=== PATIENT | female | born 1975 | race Caucasian/White ===

== ENCOUNTER → 2016-12-09 | Day surgery (SDC) | payer OTHER ==
[~2016-12-09] MED LIST: CIPRO PO; DIAZEPAM PO; DICLOFENAC PO; FLOMAX0.4 M1 PO; IBUPROFEN800 MG PO; MELOXICAM15 MG; NO MEDICATIONS; NORVASC PO; PERCOCET PO; PREDNISONE PO; PREMARIN0.3 MG PO; TOPROL XL PO; TUSSIN MAX15 MG/5 M1 PO; TYLENOL #3 PO; VISTARIL PO; WELLBUTRIN PO; ZITHROMAX PO; ZOFRAN PO
--- NOTE | ~2016-12-09 | OR ---
Unit #: [id number] #: [id number] Patient: JACK ACEVEDO [id number] [address] [place], [place] [address] [id number] O MR#: [id number] NAME: JACK ACEVEDO ROOM: Date of Procedure: 12/09/2016 Admission Date: 12/09/2016 Surgeon: Esteban Allen M.D. : 1975 Attending Physician: Esteban Allen M.D. Primary Care Physician: Sundeep Blari M.D. OPERATIVE REPORT PREOPERATIVE DIAGNOSES Back pain, radiculopathy, spinal stenosis, degenerative facet disease, degenerative disk disease. POSTOPERATIVE DIAGNOSES Back pain, radiculopathy, spinal stenosis, degenerative facet disease, degenerative disk disease. PROCEDURE PERFORMED Lumbar epidural steroid injection with intravenous sedation and fluoroscopic guidance for needle localization. INDICATIONS FOR PROCEDURE The patient is a 41-year-old female with about a year history of back, buttock and hip pain with some tingling and numbing pain radiating down below her knees. Workup demonstrated facet disease most significant at L4-5 than at L3-4. 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 The feeling is based on symptoms, but the stenosis is more consistent with her pathology. Plan is for a trial of epidural steroids if she has failed to settle with conservative measures. DESCRIPTION OF PROCEDURE The patient was placed in a seated position. Standard monitors were applied. 2 mg of Versed were given for sedation and anxiolysis, which were adequate. Vital signs remained stable. Sterile prep and drape then of the lumbar area was performed. The skin then at the L4-5 level was localized with 1% lidocaine. An 18-gauge Hustead needle was then advanced via loss of resistance technique and fluoroscopic guidance in toward the epidural space. The patient tolerated the procedure otherwise well and was discharged to the recovery room in stable condition. Dictated by... Pamela Mckeon/nneka TD: 12/09/2016 08:53 JOB #: [id number] CC: Kt Mcdaniels M.D. Unit #: [id number] #: [id number] Patient: JACK ACEVEDO OPERATIVE REPORT Page 1 of 1 X Esteban Allen MD X PROCEDURE OPERATIVE NOTE
== END | disposition home or self-care (01) ==
LOC: CCSC 07:31
DX: M47.26 Other spondylosis with radiculopathy, lumbar region (principal); M51.16 Intervertebral disc disorders with radiculopathy, lumbar region; M48.06 Spinal stenosis, lumbar region
CPT/HCPCS: J1040; J2250

== ENCOUNTER → 2017-01-13 | Day surgery (SDC) | payer OTHER ==
--- NOTE | ~2017-01-13 | OR ---
Unit #: [id number] #: [id number] Patient: JACK ACEVEDO [id number] [address] [place], [place] [address] [id number] O MR#: [id number] NAME: JACK ACEVEDO ROOM: Date of Procedure: 01/13/2017 Admission Date: 01/13/2017 Surgeon: Esteban Allen M.D. : 1975 Attending Physician: Esteban Allen M.D. Primary Care Physician: Sundeep Blair M.D. PROCEDURE OPERATIVE NOTE PREOPERATIVE DIAGNOSIS Back pain, lumbar spinal stenosis, degenerative disc disease, degenerative facet disease. POSTOPERATIVE DIAGNOSIS Back pain, lumbar spinal stenosis, degenerative disc disease, degenerative facet disease. PROCEDURE PERFORMED Lumbar epidural steroid injection with intravenous sedation under fluoroscopic guidance for needle localization. HISTORY This is a 41-year-old female whose primary issue is back pain and bilateral lower extremity numbness which improved with the first injection. Back pain did well for a week to two and then it has gradually returned. (1) based bulging and moderate stenosis at the L3-4 level. Broad based bulging advanced (2) severe stenosis at L4-5. Thus will repeat a second epidural steroid injection based on her reasonable partial response. PROCEDURE The patient was placed in a seated position. Standard monitors were applied. 2 mg of versed were given for sedation and anxiolysis which were adequate. Vital signs remained stable. Sterile prep and drape then of the lumbar area was performed. The skin at the L4 level was localized with 1% lidocaine. An 18-gauge MacroSolvetead needle was then advanced via loss of resistance technique and fluoroscopic guidance in toward the epidural space. After confirming proper positioning with fluoroscopy and radiographic contrast, 80 mg of Depo-Medrol and 4 ml of 0.125% bupivacaine were deposited. The patient tolerated the procedure otherwise well and was discharged to the recovery room in stable condition. Dictated by... Pamela Mckeon/severo Unit #: [id number] #: [id number] Patient: JACK ACEVEDO TD: 01/13/2017 09:25 JOB #: [id number] PROCEDURE OPERATIVE NOTE Page 1 of 1 X Esteban Allen MD X PROCEDURE OPERATIVE NOTE
== END | disposition home or self-care (01) ==
LOC: CCSC 07:16
DX: M51.16 Intervertebral disc disorders with radiculopathy, lumbar region (principal); M48.06 Spinal stenosis, lumbar region; M53.86 Other specified dorsopathies, lumbar region; Z88.2 Allergy status to sulfonamides; Z79.1 Long term (current) use of non-steroidal anti-inflammatories (NSAID); Z79.899 Other long term (current) drug therapy
CPT/HCPCS: J1040; J2250

== ENCOUNTER → 2017-04-03 | Outpatient (CLI) | payer OTHER ==
--- NOTE | ~2017-04-03 | MR32 ---
[facility] A Service of [facility] RADIOLOGY TEXT RESULTS PATIENT: JACK ACEVEDO LOCATION: [facility] : [birth year] UNIT #: [id number] AGE: [address]: Sundeep Blair MD SEX: F ORDER DR: [id number] [address] [address] [id number] O MR#: [id number] Acc #: [id number] NAME: JACK ACEVEDO : 1975 SEX: F STUDY DATE/TIME: 04/03/2017 13:10 UNIT: [facility] ROOM: STUDY DESCRIPTION: MR Cervical Wo Contrast Attending Physician: Sundeep Blair M.D. Referring Physician: Sundeep Blair M.D. Ordering Physician: Sundeep Blair M.D. Primary Care Physician: Sundeep Blair M.D. MRI CENTER REPORT This report is preliminary unless electronic signature is present. EXAM MRI of the cervical spine without contrast, dated 04/03/2017. COMPARISON None. HISTORY Increasing neck pain with arm and shoulder pain bilaterally. Bilateral hand numbness also for the last 4-5 months. FINDINGS Multisequence, multiplanar imaging of the cervical spine was obtained without contrast. Disc osteophyte complex are at multiple levels. Edematous endplate changes are at C5-6, associated 3 mm anterolisthesis of C5 is noted with respect to C6 along with disc disease. Cord is flattened at this level without any cord signal change. Imaged posterior fossa and craniovertebral junction are unremarkable. Pre and paravertebral soft tissues appear to be within normal limits too. C2-3: Concentric disc bulge with superimposed central focal moderate protrusion/small extrusion with mild canal stenosis. No neural foraminal narrowing. Minimal bilateral facet change. C3-4: Concentric disc bulge with small central protrusion, borderline size to mild canal stenosis. Mild left neural foramina encroachment. C4-5: Concentric disc bulge with tiny central protrusion. Mild inferior bilateral neural foraminal narrowing is noted particularly in the left but relatively more patent superior aspect of the neural foramen. C5-6: Disc osteophyte complex with superimposed central to left subarticular moderate protrusion extending towards the left foraminal STS. [facility] A Service of [facility] RADIOLOGY TEXT RESULTS PATIENT: JACK ACEVEDO LOCATION: [facility] : 77 UNIT #: [id number] AGE: [address]: Sundeep Blair MD SEX: F ORDER DR: region. Severe canal stenosis is noted with cord flattening. Minimal vertical oriented increased T2 signal is noted in the sagittal T2 sequence but is not well correlated in the axials and it is of uncertain clinical significance. Severe left and [id number] right neural foraminal narrowing are present. Worse level. C6-7, C7-T1: Mild degenerative disc disease, but otherwise, unremarkable. IMPRESSION 1. Mild degenerative changes are at multiple levels. Findings are worse at C5-6. 2. Central to left foraminal broad-based protrusion is noted with probably an extruded component in the central to left subarticular region. There is severe canal stenosis with cord flattening and suspicious increased T2 signal within it based on the sagittal images. The cord signal changes are not felt correlated in the axials. Correlate clinically with myelopathy at this level. 3. 3 mm mild grade 2 listhesis of C5 with respect to C6. Edematous endplate changes are also seen at C5-6. 4. Worse level is C2-3. Dictated by... Devan Padilla M.D. THIS IS AN ELECTRONICALLY VERIFIED REPORT Devan Padilla M.D. at 04/07/2017 11:39 AM CPR/jt TD: 04/03/2017 23:47 JOB #: [id number] MRI CENTER REPORT Page 1 of 1
== END | disposition home or self-care (01) ==
LOC: SMRI 12:38
DX: G58.9 Mononeuropathy, unspecified (principal); R94.131 Abnormal electromyogram [EMG]; M47.892 Other spondylosis, cervical region; M50.20 Other cervical disc displacement, unspecified cervical region; M48.02 Spinal stenosis, cervical region; M43.12 Spondylolisthesis, cervical region
CPT/HCPCS: 72141